=== PATIENT | male | born 1950 | race Caucasian/White ===

== ENCOUNTER 2024-04-01 12:00 | Observation (INO) ==
[2024-04-01 12:33] LABS: ABS Eosinophils 0.1 10^3/uL (0.0-0.5); ABS Lymphocytes 1.4 10^3/uL (1.0-4.8); ABS Monocytes 0.8 10^3/uL (0.0-1.1); ABS Neutrophils 5.6 10^3/uL (1.5-7.6); Eosinophil % 0.8 %; Hematocrit 44.2 % (38-53); Hemoglobin 15.3 g/dL (13.2-16.3); Mean Corpuscular Hemoglobin 32.4 pg (27-33); Mean Corpuscular Hgb Conc 34.5 g/dL (31-36); Mean Platelet Volume 9.7 fL (7.5-11.2); Platelet Count 174 10^3/uL (150-450); Red Cell Distribution Width 13.5 % (12-17)
[2024-04-01 12:48] LABS: INR 1.04 (0.85-1.14)
[2024-04-01 13:45] LABS: Albumin 4.6 g/dL (3.5-5.7); Albumin/Globulin Ratio 1.8 (1-3); Calcium 9.8 mg/dL (8.6-10.3); Creatinine, Serum 0.87 mg/dL (0.67-1.17); Globulin 2.6 g/dL (2-4); Potassium 4.5 mmol/L (3.5-5.0); Total Bilirubin 0.7 mg/dL (0.2-1.0); Total Protein 7.2 g/dL (6.4-8.9); eGFR CKD-EPI 89.4 (>60)
[2024-04-01 14:06] LABS: High Sensitivity Troponin 1 Hr 8 pg/mL (<20)
[2024-04-01] MEDS: Iohexol 350 (CONTRAST) 500 ML MDV IV ONE (14:26)
[2024-04-01] MEDS: CMCS: Nebivolol 2.5 mg TAB (NF) PO SCH (20:35)
[2024-04-01] MEDS: Heparin 5000 UNITS/ML 1 mL VIAL SUBCUT SCH (21:06)
[2024-04-02 07:43] LABS: ABS Eosinophils 0.1 10^3/uL (0.0-0.5); ABS Lymphocytes 1.7 10^3/uL (1.0-4.8); ABS Monocytes 0.6 10^3/uL (0.0-1.1); ABS Neutrophils 4.2 10^3/uL (1.5-7.6); Eosinophil % 1.7 %; Hematocrit 43.8 % (38-53); Hemoglobin 15.3 g/dL (13.2-16.3); Lymphocyte % 25.9 %; Mean Corpuscular Hemoglobin 32.8 pg (27-33); Mean Corpuscular Volume 93.7 fL (80-97); Mean Platelet Volume 10.1 fL (7.5-11.2); Platelet Count 175 10^3/uL (150-450); Red Blood Count 4.67 10^6/uL (4.06-5.63); Red Cell Distribution Width 13.3 % (12-17); White Blood Count 6.6 10^3/uL (3.6-10.2)
[2024-04-02 07:59] LABS: Albumin 4.3 g/dL (3.5-5.7); Albumin/Globulin Ratio 1.7 (1-3); Calcium 9.2 mg/dL (8.6-10.3); Creatinine, Serum 0.89 mg/dL (0.67-1.17); Globulin 2.6 g/dL (2-4); Magnesium 2.1 mg/dL (1.9-2.7); Potassium 4.3 mmol/L (3.5-5.0); Total Bilirubin 0.6 mg/dL (0.2-1.0); Total Protein 6.9 g/dL (6.4-8.9); eGFR CKD-EPI 88.8 (>60)
[2024-04-02] MEDS: VITAMIN K2 100 MCG PO SCH (10:08)
[2024-04-02] MEDS: Latanoprost 0.005% 2.5 ml BTL RIGHT EYE SCH (10:08)
[2024-04-02 18:07] VITALS: BP 121/70
== END 2024-04-02 18:15 | disposition home or self-care (01) ==
LOC: ED 12:00 → EDHOLD 12:00 → MEDTELE 22:38
PROVIDERS: ADMIT Hospitalist; ATTEND Hospitalist